=== PATIENT | male | born 1985 | race Hispanic/Latino ===

== ENCOUNTER 2017-10-15 10:38 | Emergency (ER) | payer OTHER ==
--- NOTE | 2017-10-15 11:39 | EDPHYS ---
Physician Documentation [facility] Name: Raymond Freeman Age: 32 yrs Sex: Male : 1985 Arrival Date: 10/15/2017 Time: 10:38 Bed 20 Private MD: Out, [facility], [facility] ED Physician Mike Davis HPI: 10/15 11:34 This 32 yrs old Male presents to ER via Ambulatory with complaints of Back kb Pain. 11:34 The patient presents with pain that is acute, with no known mechanism of injury. The kb symptoms are located in the right low back. Onset: The symptoms/episode began/occurred yesterday. The pain radiates to the right leg. Associated signs and symptoms: The patient has no apparent associated signs or symptoms. The problem was sustained without known cause. Modifying factors: The patient symptoms are alleviated by nothing, the patient symptoms are aggravated by any movement. Severity of symptoms: At their worst the symptoms were moderate, in the emergency department the symptoms are unchanged. The patient has not experienced similar symptoms in the past. The patient has not recently seen a physician. Historical: - Allergies: 11:30 No Known Allergies; em - PMHx: 11:30 Hyperlipidemia; em - PSHx: 11:30 None; em - Immunization history:: Adult Immunizations up to date. - Social history:: Smoking status: Patient/guardian denies using tobacco. - Ebola Screening: : Patient negative for fever greater than or equal to 101.5 degrees Fahrenheit, and additional compatible Ebola Virus Disease symptoms Patient denies exposure to infectious person Patient denies travel to an Ebola-affected area in the 21 days before illness onset No symptoms or risks identified at this time. ROS: 11:34 Constitutional: Negative for fever, chills, and weight loss, Cardiovascular: Negative kb for chest pain, palpitations, and edema, Respiratory: Negative for shortness of breath, cough, wheezing, and pleuritic chest pain, Abdomen/GI: Negative for abdominal pain, nausea, vomiting, diarrhea, and constipation, : Negative for injury, bleeding, discharge, and swelling, MS/Extremity: Negative for injury and deformity, Skin: Negative for injury, rash, and discoloration, Neuro: Negative for headache, weakness, numbness, tingling, and seizure. 11:34 Back: Positive for pain at rest, pain with movement, of the right low back. Exam: 11:34 Constitutional: This is a well developed, well nourished patient who is awake, alert, kb and in no acute distress. Head/Face: Normocephalic, atraumatic. Chest/axilla: Normal chest wall appearance and motion. Nontender with no deformity. No lesions are appreciated. Cardiovascular: Regular rate and rhythm with a normal S1 and S2. No gallops, murmurs, or rubs. Normal PMI, no JVD. No pulse deficits. Respiratory: Lungs have equal breath sounds bilaterally, clear to auscultation and percussion. No rales, rhonchi or wheezes noted. No increased work of breathing, no retractions or nasal flaring. Abdomen/GI: Soft, non-tender, with normal bowel sounds. No distension or tympany. No guarding or rebound. No evidence of tenderness throughout. Back: No spinal tenderness. No costovertebral tenderness. Full range of motion. Skin: Warm, dry with normal turgor. Normal color with no rashes, no lesions, and no evidence of cellulitis. MS/ Extremity: Pulses equal, no cyanosis. Neurovascular intact. Full, normal range of motion. Neuro: Awake and alert, GCS 15, oriented to person, place, time, and situation. Cranial nerves II-XII grossly intact. Motor strength 5/5 in all extremities. Sensory grossly intact. Cerebellar exam normal. Normal gait. Vital Signs: 11:30 BP 133 / 87; Pulse 76; Resp 16; Pulse Ox 97% on R/A; Pain 3/10; em MDM: 11:13 Patient medically screened. kb 11:36 Data reviewed: vital signs, nurses notes. Data interpreted: Pulse oximetry: on room air kb is 100 %. Interpretation: normal. Counseling: I had a detailed discussion with the patient and/or guardian regarding: the historical points, exam findings, and any diagnostic results supporting the discharge/admit diagnosis, lab results, the need for outpatient follow up, a family practitioner, to return to the emergency department if symptoms worsen or persist or if there are any questions or concerns that arise at home. 10/15 11:58 Order name: Urine Dipstick--Ancillary (enter results) eb 10/15 11:17 Order name: Urine Dipstick-Ancillary (obtain specimen); Complete Time: 11:32 kb Administered Medications: 11:44 Drug: TORadol 60 mg Route: IM; Site: left deltoid; em 12:12 Follow up: Response: No adverse reaction em Disposition: 14:25 Co-signature as Attending Physician, Mike Davis MD. rn Disposition: 10/15/17 11:38 Discharged to Home. Impression: Sciatica, right side. - Condition is Stable. - Discharge Instructions: Sciatica, [id number]. - Prescriptions for Cyclobenzaprine 10 mg Oral Tablet - take 1 tablet by ORAL route every 8 hours As needed; 21 tablet. Diclofenac Sodium 75 mg Oral Tablet, Delayed Release (E.C.) - take 1 tablet by ORAL route 2 times per day As needed; 30 tablet. - Medication Reconciliation Form, Thank You Letter, Antibiotic Education, Prescription Opioid Use form. - Follow up: Emergency Department; When: As needed; Reason: Worsening of condition. Follow up: Private Physician; When: 2 - 3 days; Reason: Recheck today's complaints, Continuance of care, Re-evaluation by your physician. Signatures: Dispatcher [employer] Suellen Funez, CONSTRUCTION COST ESTIMATOR-C CONSTRUCTION COST ESTIMATOR-Ckb Dario Quiroz, SAFETY REPRESENTATIVE SAFETY REPRESENTATIVE Mike Velez MD MD pattern developer: (The following items were deleted from the chart) 12:13 11:38 10/15/2017 11:38 Discharged to Home. Impression: Sciatica, right side. Condition em is Stable. Forms are Medication Reconciliation Form, Thank You Letter, Antibiotic Education, Prescription Opioid Use. Follow up: Emergency Department; When: As needed; Reason: Worsening of condition. Follow up: Private Physician; When: 2 - 3 days; Reason: Recheck today's complaints, Continuance of care, Re-evaluation by your physician. kb
--- NOTE | 2017-10-15 11:39 | ER ---
Nurse's Notes [facility] Name: Raymond Freeman Age: 32 yrs Sex: Male : 1985 Arrival Date: 10/15/2017 Time: 10:38 Bed 20 Private MD: Out, [facility] Diagnosis: Sciatica, right side Presentation: 10/15 11:28 Presenting complaint: Patient states: back pain that radiates to his left leg that em started yesterday, denies trauma, no urinary complaints. Transition of care: patient was not received from another setting of care. Onset of symptoms was October 14, 2017. Risk Assessment: Do you want to hurt yourself or someone else? Patient reports no desire to harm self or others. Initial Sepsis Screen: Does the patient meet any 2 criteria? No. Patient's initial sepsis screen is negative. Does the patient have a suspected source of infection? Yes:. Care prior to arrival: None. 11:28 Method Of Arrival: Ambulatory em 11:28 Acuity: STEPHANIE 4 ph Triage Assessment: 11:30 General: Appears in no apparent distress. uncomfortable, Behavior is calm, cooperative. em Pain: Complains of pain in right low back. Musculoskeletal: Capillary refill < 3 seconds, Range of motion: intact in all extremities. Historical: - Allergies: 11:30 No Known Allergies; em - PMHx: 11:30 Hyperlipidemia; em - PSHx: 11:30 None; em - Immunization history:: Adult Immunizations up to date. - Social history:: Smoking status: Patient/guardian denies using tobacco. - Ebola Screening: : Patient negative for fever greater than or equal to 101.5 degrees Fahrenheit, and additional compatible Ebola Virus Disease symptoms Patient denies exposure to infectious person Patient denies travel to an Ebola-affected area in the 21 days before illness onset No symptoms or risks identified at this time. Screenin:11 Abuse screen: Denies threats or abuse. Nutritional screening: No deficits noted. em Tuberculosis screening: No symptoms or risk factors identified. Fall Risk None identified. Assessment: 11:30 General: Appears in no apparent distress. uncomfortable, Behavior is calm, cooperative. em Pain: Complains of pain in right low back. Neuro: Level of Consciousness is awake, alert, obeys commands, Oriented to person, place, time, situation, Moves all extremities. Speech is normal. Cardiovascular: Capillary refill < 3 seconds Patient's skin is warm and dry. Respiratory: Airway is patent Respiratory effort is even, unlabored, Respiratory pattern is regular, symmetrical. GI: Patient currently denies nausea, vomiting. : Urine is clear. EENT: No signs and/or symptoms were reported regarding the EENT system. Derm: Skin is intact, Skin is pink, warm \T\ dry. Musculoskeletal: Range of motion: intact in all extremities. 11:35 Reassessment: Patient appears in no apparent distress at this time. I agree with above iw assessment byDario Quiroz LVN. Vital Signs: 11:30 BP 133 / 87; Pulse 76; Resp 16; Pulse Ox 97% on R/A; Pain 3/10; em ED Course: 10:38 Patient arrived in ED. sb2 10:39 Out, [facility] is Private Physician. sb2 11:13 Suellen Parks FNP-C is [facility]. kb 11:13 Mike Davis MD is Attending Physician. kb 11:21 Dario Quiroz LVN is Primary Nurse. em 11:30 Arm band placed on. em 11:30 Patient has correct armband on for positive identification. Bed in low position. Call em light in reach. Adult w/ patient. 11:30 No provider procedures requiring assistance completed. em 11:50 Triage completed. ph 12:11 Patient did not have IV access during this emergency room visit. em Administered Medications: 11:44 Drug: TORadol 60 mg Route: IM; Site: left deltoid; em 12:12 Follow up: Response: No adverse reaction em Outcome: 11:38 Discharge ordered by . kb 12:12 Discharged to home ambulatory, with family. em 12:12 Condition: good 12:12 Discharge instructions given to patient, family, Instructed on discharge instructions, follow up and referral plans. no drinking with medication, no driving heavy equipment, medication usage, Demonstrated understanding of instructions, follow-up care, medications, Prescriptions given X 2. 12:13 Patient left the ED. em Signatures: Suellen Parks FNP-C FNP-Ckb Munoz, Edgar, LVN LVN em Dona Dorsey RN RN Jaycee Pacheco RN RN Kim Freitas sb2
[2017-10-15] MEDS ORDERED: KETOROLAC 30 MG/ML INJ ONE (11:40)
[2017-10-15 14:14] LABS: Urine Blood NEGATIVE (NEG); Urine Glucose NEGATIVE (NEG); Urine Protein NEGATIVE (NEG)
== END 2017-10-15 12:13 | disposition home or self-care (01) ==
LOC: ER 10:38
DX: M54.31 Sciatica, right side (principal); E78.5 Hyperlipidemia, unspecified
CPT/HCPCS: 81003; 96372; 99283